=== PATIENT | male | born 1980 | race Caucasian/White ===

== ENCOUNTER 2021-11-18 21:31 | Inpatient (IN) | payer SELFPAY ==
[2021-11-18] MEDS ORDERED: Folic Acid 1 MG, Multivitamins, Adult 10 ML in Dextrose 5 %-0.45 % NaCl 1,000 ML IV SCH (22:45)
[2021-11-18] MEDS ORDERED: Thiamine HCl 200 MG/2 ML VIAL SLOW IVP SCH (22:45)
[2021-11-18] MEDS ORDERED: Lorazepam 2 MG/ML VIAL ONE (23:11)
[2021-11-19] MEDS ORDERED: Lorazepam 2 MG/ML VIAL IM PRN (05:53)
[2021-11-19] MEDS ORDERED: Ondansetron ODT 4 MG TAB PO PRN (05:53)
[2021-11-19] MEDS ORDERED: Lorazepam 1 MG TAB PO PRN (05:53)
[2021-11-19] MEDS ORDERED: Electrolyte Replacement Protocol 1 EACH FS PRN (06:00)
[2021-11-19] MEDS ORDERED: Potassium Chloride 20 MEQ TAB PO SCH (06:00)
[2021-11-19] MEDS ORDERED: Potassium Chloride 20 MEQ TAB ONE (06:15)
[2021-11-19] MEDS ORDERED: Lorazepam 2 MG/ML VIAL ONE (06:15)
[2021-11-19] MEDS: Thiamine HCl 200 MG/2 ML VIAL SLOW IVP SCH (06:32)
[2021-11-19] MEDS: Lorazepam 1 MG TAB PO SCH ×4 (06:32→23:20)
[2021-11-19 06:55] LABS: Phosphorus 3.6 mg/dL (2.3-4.7)
[2021-11-19 06:57] LABS: Anion Gap 16 mmol/L (10-20); BUN (Urea Nitrogen) 18 mg/dL (8.9-20.6); Bilirubin, Direct 1.6 mg/dL (0.1-0.3); Calc. Creatinine Clearance 0 mL/min (70-130); Calcium 9.3 mg/dL (7.8-10.44); Carbon Dioxide 27 mmol/L (22-29); Chloride 98 mmol/L (98-107); Glucose 84 mg/dL (70-105); Magnesium 1.8 mg/dL (1.6-2.6); Potassium 3.6 mmol/L (3.5-5.1); Sodium 137 mmol/L (136-145)
[2021-11-19 07:43] LABS: #Eosinphils 0.1 thou/uL (0.0-0.7); #Lymphocytes 1.3 thou/uL (1.20-3.40); #Monocytes 0.4 thou/uL (0.11-0.59); #Neutrophils 2.9 thou/uL (1.40-6.50); %Basophils 0.3 % (0.0-1.0); %Eosinophils 1.7 % (0.0-10.0); %Monocytes 7.8 % (0.0-10.0); %Neutrophils 62.2 % (42.0-75.0); Hemoglobin 13.7 g/dL (14.0-18.0); Mean Corpuscular HGB CONC 34.3 g/dL (32.0-36.0); Mean Corpuscular Hemoglobin 33.7 pg (27.0-31.0); Mean Corpuscular Volume 98.3 fL (78.0-98.0); Mean Platelet Volume 10.6 fL (7.4-10.4); Platelet Count 14 thou/uL (130-400); RBC Distribution Width 12.6 % (11.5-14.5); Red Blood Cell (RBC) Count 4.08 mill/uL (4.70-6.10); White Blood Cell (WBC) Count 4.7 thou/uL (4.8-10.8)
[2021-11-19 07:48] LABS: Band 11 % (5-11); Eosinophils 1 % (0-10); Lymphocytes 16 % (21-51); MDiff Complete? YES; Monocytes 5 % (0-10); Neutrophil 47 % (42-75); Platelet Morphology Comment Appears Decreased; Reactive Lymphocytes 20 % (0-10); Reflex for Review?? YES; Target Cells SLIGHT = 2-5 cells (100X) (0-1/hpf)
[2021-11-19] MEDS ORDERED: Multivitamins, Adult 10 ML, Folic Acid 1 MG in Dextrose 5 %-0.45 % NaCl 1,000 ML IV SCH (09:00)
[2021-11-19] MEDS: Multivit, Therapeutic 1 TAB PO SCH (09:36)
[2021-11-19] MEDS: Folic Acid 1 MG TAB PO SCH (09:36)
[2021-11-19 09:39] VITALS: BMI 21.5
[2021-11-19] MEDS ORDERED: Magnesium 2 GM/50 ML 2 GM in Premix Bag 1 BAG IVPB SCH (11:00)
[2021-11-19 18:46] LABS: #Eosinphils 0.1 thou/uL (0.0-0.7); #Lymphocytes 1.2 thou/uL (1.20-3.40); #Monocytes 0.3 thou/uL (0.11-0.59); #Neutrophils 3.3 thou/uL (1.40-6.50); %Basophils 0.9 % (0.0-1.0); %Eosinophils 2.5 % (0.0-10.0); %Lymphocytes 24.3 % (21.0-51.0); %Monocytes 6.8 % (0.0-10.0); %Neutrophils 65.5 % (42.0-75.0); Hemoglobin 12.5 g/dL (14.0-18.0); Mean Corpuscular HGB CONC 33.3 g/dL (32.0-36.0); Mean Corpuscular Volume 99.1 fL (78.0-98.0); Mean Platelet Volume 9.1 fL (7.4-10.4); Platelet Count 37 thou/uL (130-400); RBC Distribution Width 12.8 % (11.5-14.5); Red Blood Cell (RBC) Count 3.79 mill/uL (4.70-6.10)
[2021-11-19 19:03] LABS: ALT (SGPT) 57 U/L (8-55); AST (SGOT) 200 U/L (5-34); Albumin 3.7 g/dL (3.5-5.0); Alkaline Phosphatase 101 U/L (40-110); Anion Gap 14 mmol/L (10-20); BUN (Urea Nitrogen) 14 mg/dL (8.9-20.6); Bilirubin, Total 2.6 mg/dL (0.2-1.2); Calc. Creatinine Clearance 137 mL/min (70-130); Carbon Dioxide 25 mmol/L (22-29); Chloride 97 mmol/L (98-107); Globulin 2.5 g/dL (2.4-3.5); Glucose 112 mg/dL (70-105); Potassium 3.6 mmol/L (3.5-5.1); Protein, Total 6.2 g/dL (6.0-8.3); Sodium 132 mmol/L (136-145)
[2021-11-20] MEDS ORDERED: Lorazepam 1 MG TAB PO PRN (05:54)
[2021-11-20] MEDS: Thiamine HCl 200 MG/2 ML VIAL SLOW IVP SCH (06:20)
[2021-11-20] MEDS: Lorazepam 1 MG TAB PO SCH (06:20)
[2021-11-20] MEDS: Folic Acid 1 MG TAB PO SCH (08:24)
[2021-11-20] MEDS: Multivit, Therapeutic 1 TAB PO SCH (08:24)
[2021-11-20] MEDS ORDERED: FLU VACC QS2021-22(6MOS UP)/PF 60 MCG/0.5 ML SYRINGE IM ONE (09:00)
[2021-11-20 09:03] VITALS: BP 140/91; TEMP 98.2
[2021-11-20 10:17] LABS: Hemoglobin 13.6 g/dL (14.0-18.0); Mean Corpuscular HGB CONC 31.6 g/dL (32.0-36.0); Mean Corpuscular Hemoglobin 31.7 pg (27.0-31.0); Mean Platelet Volume 9.4 fL (7.4-10.4); Platelet Count 41 thou/uL (130-400); RBC Distribution Width 12.7 % (11.5-14.5); Red Blood Cell (RBC) Count 4.29 mill/uL (4.70-6.10); White Blood Cell (WBC) Count 5.5 thou/uL (4.8-10.8)
[2021-11-20 10:31] LABS: ALT (SGPT) 69 U/L (8-55); AST (SGOT) 169 U/L (5-34); Albumin 4.4 g/dL (3.5-5.0); Alkaline Phosphatase 118 U/L (40-110); Anion Gap 15 mmol/L (10-20); BUN (Urea Nitrogen) 12 mg/dL (8.9-20.6); Bilirubin, Total 2.7 mg/dL (0.2-1.2); Calc. Creatinine Clearance 121 mL/min (70-130); Calcium 9.8 mg/dL (7.8-10.44); Carbon Dioxide 27 mmol/L (22-29); Chloride 96 mmol/L (98-107); Globulin 2.9 g/dL (2.4-3.5); Glucose 91 mg/dL (70-105); Protein, Total 7.3 g/dL (6.0-8.3); Sodium 134 mmol/L (136-145)
[2021-11-20 11:36] LABS: Thyroid Stimulating Hormone 2.2794 uIU/mL (0.35-4.94)
[2021-11-21] MEDS ORDERED: Lorazepam 1 MG TAB PO PRN (05:54)
[2021-11-21] MEDS ORDERED: Lorazepam 0.5 MG TAB PO SCH (06:00)
[2021-11-22] MEDS ORDERED: Lorazepam 0.5 MG TAB PO PRN (05:54)
[2021-11-22] MEDS ORDERED: Thiamine 100 MG TAB PO SCH (06:00)
== END 2021-11-20 11:09 | disposition home or self-care (01) | DRG 897 ==
LOC: ERS 21:31 → ERHOLD 23:03 → T4-A 11-19 08:43
PROVIDERS: ADMIT Student in an Organized Health Care Education/Training Program; ATTEND Internal Medicine
PROC: HZ2ZZZZ Detoxification Services for Substance Abuse Treatment (ICD-10-PCS; principal; 2021-11-18)
DX: F10.239 Alcohol dependence with withdrawal, unspecified (principal); F17.210 Nicotine dependence, cigarettes, uncomplicated; D69.59 Other secondary thrombocytopenia; D53.9 Nutritional anemia, unspecified; D72.819 Decreased white blood cell count, unspecified; K70.0 Alcoholic fatty liver; F25.9 Schizoaffective disorder, unspecified
CPT/HCPCS: 36415; 36430; 76705; 80048; 80053; 82248; 82607; 82746; 83735; 84100; 84443; 85025; 85027; 85060; 86850; 86900; 86901; J2060; J3411; J3475; J7042; P9035

== ENCOUNTER 2023-06-11 14:22 | Inpatient (IN) | payer OTHER, SELFPAY ==
[2023-06-11] MEDS ORDERED: Ondansetron ODT 4 MG TAB PO PRN (19:39)
[2023-06-11] MEDS ORDERED: Ondansetron PF 4 MG/2 ML Vial IVP PRN (19:39)
[2023-06-11] MEDS ORDERED: Acetaminophen 650 MG Suppository PR PRN (19:39)
[2023-06-11] MEDS ORDERED: fentaNYL 50 mcg/mL 1 mL Vial SLOW IVP PRN (19:51)
[2023-06-11] MEDS ORDERED: Ipratropium/Albuterol 3 ML NEB NEB PRN (19:55)
[2023-06-11] MEDS ORDERED: Benzonatate 100 MG CAP PO PRN (19:56)
[2023-06-11] MEDS ORDERED: Electrolyte Replacement Protocol 1 EACH FS SCH (20:00)
[2023-06-11 20:40] LABS: ALT (SGPT) 35 U/L (8-55); AST (SGOT) 108 U/L (5-34); Albumin 2.7 g/dL (3.5-5.0); Alkaline Phosphatase 126 U/L (40-110); Anion Gap 12 mmol/L (10-20); BUN (Urea Nitrogen) 9 mg/dL (8.9-20.6); Bilirubin, Total 10.6 mg/dL (0.2-1.2); Calc. Creatinine Clearance 144 mL/min (70-130); Calcium 7.8 mg/dL (7.8-10.44); Carbon Dioxide 25 mmol/L (22-29); Chloride 92 mmol/L (98-107); Estimated GFR 124; Globulin 2.7 g/dL (2.4-3.5); Glucose 99 mg/dL (70-105); Magnesium 1.5 mg/dL (1.6-2.6); Potassium 3.2 mmol/L (3.5-5.1); Protein, Total 5.4 g/dL (6.0-8.3); Sodium 126 mmol/L (136-145)
[2023-06-11] MEDS ORDERED: Lorazepam 1 MG TAB PO PRN (20:56)
[2023-06-11] MEDS ORDERED: Lorazepam 2 MG/ML VIAL IM PRN (20:56)
[2023-06-11] MEDS: Lorazepam 1 MG TAB PO SCH (21:55)
[2023-06-11] MEDS: cefTRIAXone\\ROCEPHIN 2 GM in Sodium Chloride 0.9% 100 ML IVPB SCH (21:55)
[2023-06-11 23:53] LABS: Phosphorus 2.1 mg/dL (2.3-4.7)
[2023-06-12] MEDS: Lorazepam 1 MG TAB PO SCH ×4 (04:18→20:42)
[2023-06-12] MEDS: Acetaminophen 325 MG TAB PO PRN ×2 (04:49→21:49)
[2023-06-12 07:07] LABS: #Monocytes 1.7 thou/uL (0.11-0.59); #Neutrophils 7.6 thou/uL (1.40-6.50); %Basophils 0.2 % (0.0-1.0); %Eosinophils 0.3 % (0.0-10.0); %Lymphocytes 16.1 % (21.0-51.0); %Monocytes 15.5 % (0.0-10.0); Hematocrit 23.1 % (42.0-52.0); Hemoglobin 8.4 g/dL (14.0-18.0); Mean Corpuscular HGB CONC 36.4 g/dL (32.0-36.0); Mean Corpuscular Volume 93.5 fl (78.0-98.0); Mean Platelet Volume 10.9 fL (7.4-10.4); Red Blood Cell (RBC) Count 2.47 mill/uL (4.70-6.10); White Blood Cell (WBC) Count 11.3 10x3/uL (4.8-10.8)
[2023-06-12 07:19] LABS: Platelet Count 70 10x3/uL (130-400)
[2023-06-12 07:31] LABS: Anion Gap 11 mmol/L (10-20); BUN (Urea Nitrogen) 12 mg/dL (8.9-20.6); Calc. Creatinine Clearance 138 mL/min (70-130); Calcium 7.7 mg/dL (7.8-10.44); Carbon Dioxide 26 mmol/L (22-29); Chloride 92 mmol/L (98-107); Estimated GFR 123; Glucose 103 mg/dL (70-105); Potassium 2.9 mmol/L (3.5-5.1); Sodium 126 mmol/L (136-145)
[2023-06-12] MEDS: Nicotine 21 MG PATCH TD SCH (07:57)
[2023-06-12] MEDS: Multivit, Therapeutic 1 TAB PO SCH (07:58)
[2023-06-12] MEDS ORDERED: Magnesium 2 GM/50 ML(in water) 2 GM in Premix Bag 1 BAG IVPB SCH (08:00)
[2023-06-12] MEDS ORDERED: Potassium Chloride 20 MEQ TAB PO SCH (08:00)
[2023-06-12 08:52] LABS: INR-International Normal Ratio 2.3; Prothrombin Time 26.5 sec (12.0-14.7)
[2023-06-12 09:18] LABS: CEA, Serum 5.74 ng/mL (< or = 5.0)
[2023-06-12 09:31] LABS: HBCM Index 0.06 S/CO (0-0.79); HBSAg Index 0.33 S/CO (0-0.99); Hep A IgM AB Non-Reactive S/CO (NonReactive); Hep A IgM S/CO 0.21 S/CO (0-0.79); Hep B Surf Ag Non-Reactive S/CO (NonReactive); Hep C IgG Ab Non-Reactive S/CO (NonReactive); Hep C Index 0.24 S/CO (0-0.79); Hepatitis B Core IgM Abs Non-Reactive S/CO (NonReactive)
[2023-06-12] MEDS ORDERED: Phytonadione 5 MG TAB PO SCH (12:15)
[2023-06-12] MEDS ORDERED: Sodium Bicarbonate 2.5 MEQ/5 ML VIAL ONE (13:52)
[2023-06-12] MEDS ORDERED: Lidocaine 1% PF 5 ML VIAL ONE (13:52)
[2023-06-12] MEDS ORDERED: Multivitamins, Adult 10 ML, Folic Acid 1 MG, Thiamine HCl 100 MG in Dextrose 5 %-0.45 %... IV SCH (15:00)
[2023-06-12 16:52] LABS: RBC Count-Automated (BF) 3569 /cu.mm; WBC/Nucleated-Auto (BF) 23038 /cu.mm
[2023-06-12 16:55] LABS: BF Color Yellow; Body Fluid Source Paracentesis Fluid; Clarity Cloudy/Turbid (Clear); Tube # EDTA
[2023-06-12 18:35] LABS: BF Segmented Neutrophils 75 %; Cell Count Non Hematic 21 %; Lymphocytes 4 %
[2023-06-12] MEDS: cefTRIAXone\\ROCEPHIN 2 GM in Sodium Chloride 0.9% 100 ML IVPB SCH (20:42)
[2023-06-12] MEDS ORDERED: Lorazepam 1 MG TAB PO PRN (20:56)
[2023-06-13] MEDS: Lorazepam 1 MG TAB PO SCH ×2 (05:26→09:14)
[2023-06-13 06:25] LABS: #Monocytes 2.5 thou/uL (0.11-0.59); #Neutrophils 10.6 thou/uL (1.40-6.50); %Basophils 0.1 % (0.0-1.0); %Eosinophils 0.2 % (0.0-10.0); %Lymphocytes 14.8 % (21.0-51.0); %Monocytes 16.2 % (0.0-10.0); %Neutrophils 67.7 % (42.0-75.0); Hematocrit 25.3 % (42.0-52.0); Hemoglobin 9.1 g/dL (14.0-18.0); Mean Corpuscular Hemoglobin 33.7 pg (27.0-31.0); Mean Corpuscular Volume 93.7 fl (78.0-98.0); Mean Platelet Volume 10.3 fL (7.4-10.4); RBC Distribution Width 17.5 % (11.5-14.5); White Blood Cell (WBC) Count 15.7 10x3/uL (4.8-10.8)
[2023-06-13 06:29] LABS: Platelet Count 102 10x3/uL (130-400)
[2023-06-13 06:50] LABS: ALT (SGPT) 40 U/L (8-55); AST (SGOT) 124 U/L (5-34); Albumin 2.7 g/dL (3.5-5.0); Alkaline Phosphatase 120 U/L (40-110); Anion Gap 10 mmol/L (10-20); BUN (Urea Nitrogen) 18 mg/dL (8.9-20.6); Bilirubin, Total 12.1 mg/dL (0.2-1.2); Calc. Creatinine Clearance 144 mL/min (70-130); Carbon Dioxide 26 mmol/L (22-29); Chloride 92 mmol/L (98-107); Estimated GFR 124; Globulin 2.8 g/dL (2.4-3.5); Glucose 113 mg/dL (70-105); Potassium 3.2 mmol/L (3.5-5.1); Protein, Total 5.5 g/dL (6.0-8.3); Sodium 125 mmol/L (136-145)
[2023-06-13] MEDS ORDERED: Furosemide 40 MG TAB PO SCH (07:30)
[2023-06-13] MEDS ORDERED: Spironolactone 100 MG TAB PO SCH (08:00)
[2023-06-13] MEDS ORDERED: Phytonadione 10 MG/ML AMP SC SCH (09:00)
[2023-06-13] MEDS: Nicotine 21 MG PATCH TD SCH (09:14)
[2023-06-13] MEDS: Thiamine 100 MG TAB PO SCH (09:14)
[2023-06-13] MEDS: Multivit, Therapeutic 1 TAB PO SCH (09:14)
[2023-06-13] MEDS: Acetaminophen 325 MG TAB PO PRN (09:22)
[2023-06-13] MEDS ORDERED: Furosemide 40 MG/4 ML VIAL SLOW IVP SCH (11:00)
[2023-06-13 11:09] LABS: Actual Bicarbonate (HCO3v) 29.7 mEq/L (22-28); Base Excess 6.7 mEq/L (-2.0 to +3.0); Calcium, Ionized (venous) 1.06 mmol/L (1.16-1.32); Chloride (VBG) 91 mmol/L (98-106); Hematocrit-VBG 32 % (42.0-52.0); Hemoglobin (Hb) 10.9 g/dL (13.2-17.3); Potassium (VBG) 3.22 mmol/L (3.70-5.30); Sodium 124.3 mmol/L (133-146); pH (venous) 7.527 (7.32-7.43)
[2023-06-13] MEDS ORDERED: Pantoprazole 40 MG VIAL IVP SCH (11:15)
[2023-06-13] MEDS: methylPREDNISolone Sod Succ 40 MG VIAL IVP SCH ×3 (11:46→23:46)
[2023-06-13] MEDS: Potassium Chloride 20 MEQ in Premix Bag 1 BAG IVPB SCH ×2 (11:46→13:29)
[2023-06-13] MEDS ORDERED: Ipratropium/Albuterol 3 ML NEB NEB PRN (13:17)
[2023-06-13] MEDS: Furosemide 40 MG/4 ML VIAL SLOW IVP SCH (13:29)
[2023-06-13] MEDS ORDERED: Ipratropium/Albuterol 3 ML NEB NEB SCH (14:30)
[2023-06-13] MEDS: cefTRIAXone\\ROCEPHIN 2 GM in Sodium Chloride 0.9% 100 ML IVPB SCH (20:25)
[2023-06-13] MEDS ORDERED: Lorazepam 1 MG TAB PO PRN (20:56)
[2023-06-13] MEDS ORDERED: Lorazepam 0.5 MG TAB PO SCH (21:00)
[2023-06-13 22:13] LABS: Potassium 4.1 mmol/L (3.5-5.1)
[2023-06-14] MEDS ORDERED: Lorazepam 0.5 MG TAB PO PRN ×2 (02:13→20:56)
[2023-06-14 03:52] LABS: #Neutrophils 16.3 thou/uL (1.40-6.50); %Basophils 0.1 % (0.0-1.0); %Lymphocytes 8.3 % (21.0-51.0); %Monocytes 9.7 % (0.0-10.0); %Neutrophils 80.2 % (42.0-75.0); Hematocrit 25.3 % (42.0-52.0); Hemoglobin 9.4 g/dL (14.0-18.0); Mean Corpuscular HGB CONC 37.2 g/dL (32.0-36.0); Mean Corpuscular Hemoglobin 33.9 pg (27.0-31.0); Mean Corpuscular Volume 91.3 fl (78.0-98.0); Mean Platelet Volume 10.2 fL (7.4-10.4); Platelet Count 140 10x3/uL (130-400); RBC Distribution Width 16.9 % (11.5-14.5); Red Blood Cell (RBC) Count 2.77 mill/uL (4.70-6.10); White Blood Cell (WBC) Count 20.4 10x3/uL (4.8-10.8)
[2023-06-14 04:04] LABS: Prothrombin Time 23.3 sec (12.0-14.7)
[2023-06-14 04:18] LABS: ALT (SGPT) 42 U/L (8-55); AST (SGOT) 116 U/L (5-34); Albumin 2.7 g/dL (3.5-5.0); Alkaline Phosphatase 126 U/L (40-110); Anion Gap 15 mmol/L (10-20); BUN (Urea Nitrogen) 21 mg/dL (8.9-20.6); Bilirubin, Total 10.8 mg/dL (0.2-1.2); Calc. Creatinine Clearance 152 mL/min (70-130); Calcium 7.9 mg/dL (7.8-10.44); Carbon Dioxide 24 mmol/L (22-29); Chloride 91 mmol/L (98-107); Estimated GFR 126; Glucose 125 mg/dL (70-105); Potassium 3.8 mmol/L (3.5-5.1); Protein, Total 5.7 g/dL (6.0-8.3); Sodium 126 mmol/L (136-145)
[2023-06-14] MEDS: Furosemide 40 MG/4 ML VIAL SLOW IVP SCH ×2 (05:12→13:16)
[2023-06-14] MEDS: methylPREDNISolone Sod Succ 40 MG VIAL IVP SCH ×2 (05:12→11:10)
[2023-06-14] MEDS: Thiamine 100 MG TAB PO SCH (08:05)
[2023-06-14] MEDS: Multivit, Therapeutic 1 TAB PO SCH (08:06)
[2023-06-14] MEDS: Nicotine 21 MG PATCH TD SCH (08:08)
[2023-06-14] MEDS ORDERED: Pantoprazole 40 MG VIAL IVP SCH (09:00)
[2023-06-14] MEDS: Polyethylene Glycol 3350 17 GM Packet PO SCH (20:26)
[2023-06-14] MEDS: Morphine 2 MG/ML VIAL SLOW IVP PRN (20:26)
[2023-06-14] MEDS: cefTRIAXone\\ROCEPHIN 2 GM in Sodium Chloride 0.9% 100 ML IVPB SCH (20:27)
[2023-06-15 02:42] LABS: Hematocrit 28.2 % (42.0-52.0); Hemoglobin 10.2 g/dL (14.0-18.0); Mean Corpuscular HGB CONC 36.2 g/dL (32.0-36.0); Mean Corpuscular Hemoglobin 34.2 pg (27.0-31.0); Mean Platelet Volume 9.8 fL (7.4-10.4); Platelet Count 189 10x3/uL (130-400); RBC Distribution Width 18.1 % (11.5-14.5); Red Blood Cell (RBC) Count 2.98 mill/uL (4.70-6.10)
[2023-06-15 02:49] LABS: Delete Auto Diff?? YES; Manual Diff?? YES; Mean Corpuscular Volume 94.6 fl (78.0-98.0)
[2023-06-15 03:08] LABS: INR-International Normal Ratio 1.7; Prothrombin Time 20.8 sec (12.0-14.7)
[2023-06-15 03:09] LABS: PTT 47.1 sec (22.9-36.1)
[2023-06-15 03:12] LABS: ALT (SGPT) 58 U/L (8-55); AST (SGOT) 152 U/L (5-34); Albumin 2.7 g/dL (3.5-5.0); Alkaline Phosphatase 146 U/L (40-110); Anion Gap 14 mmol/L (10-20); BUN (Urea Nitrogen) 30 mg/dL (8.9-20.6); Bilirubin, Total 8.5 mg/dL (0.2-1.2); Calc. Creatinine Clearance 129 mL/min (70-130); Calcium 8.3 mg/dL (7.8-10.44); Carbon Dioxide 25 mmol/L (22-29); Chloride 92 mmol/L (98-107); Estimated GFR 120; Globulin 3.3 g/dL (2.4-3.5); Glucose 118 mg/dL (70-105); Potassium 3.8 mmol/L (3.5-5.1); Sodium 127 mmol/L (136-145)
[2023-06-15 03:26] LABS: Anisocytosis MODERATE=16-30 cells HPF (0-5); Band 8 % (5-11); Burr Cells MODERATE= 6-15 cells HPF (0-1); CellaVision Operator ID lab.sh2; Lymphocytes 2 % (21-51); Macrocytosis MODERATE=16-30 cells HPF (0-5); Monocytes 14 % (0-10); Neutrophil 77 % (42-75); Platelet Adequacy Comment Platelets Normal; Poikilocytosis MODERATE=16-30 cells HPF (0-5); Polychromasia MODERATE = 3-4 cells HPF (0-2); Smudge Cells 9.8 %; Total Cell Count 102
[2023-06-15] MEDS: Furosemide 40 MG/4 ML VIAL SLOW IVP SCH (05:09)
[2023-06-15] MEDS: Polyethylene Glycol 3350 17 GM Packet PO SCH ×2 (08:08→20:21)
[2023-06-15] MEDS: Nicotine 21 MG PATCH TD SCH (08:08)
[2023-06-15] MEDS: Multivit, Therapeutic 1 TAB PO SCH (08:09)
[2023-06-15] MEDS: Thiamine 100 MG TAB PO SCH (08:09)
[2023-06-15] MEDS ORDERED: Lidocaine 1% (PF) 30 ML VIAL ONE (12:14)
[2023-06-15] MEDS: cefTRIAXone\\ROCEPHIN 2 GM in Sodium Chloride 0.9% 100 ML IVPB SCH (20:21)
[2023-06-15] MEDS: Morphine 2 MG/ML VIAL SLOW IVP PRN (20:26)
[2023-06-16 04:00] LABS: #Monocytes 2.2 thou/uL (0.11-0.59); #Neutrophils 14.8 thou/uL (1.40-6.50); %Basophils 0.2 % (0.0-1.0); %Eosinophils 0.1 % (0.0-10.0); %Lymphocytes 9.5 % (21.0-51.0); %Monocytes 11.7 % (0.0-10.0); %Neutrophils 77.5 % (42.0-75.0); Hematocrit 27.4 % (42.0-52.0); Mean Corpuscular HGB CONC 36.5 g/dL (32.0-36.0); Mean Corpuscular Hemoglobin 34.7 pg (27.0-31.0); Mean Corpuscular Volume 95.1 fl (78.0-98.0); Mean Platelet Volume 9.6 fL (7.4-10.4); Platelet Count 172 10x3/uL (130-400); RBC Distribution Width 19.4 % (11.5-14.5); Red Blood Cell (RBC) Count 2.88 mill/uL (4.70-6.10); White Blood Cell (WBC) Count 19.1 10x3/uL (4.8-10.8)
[2023-06-16 04:28] LABS: ALT (SGPT) 136 U/L (8-55); AST (SGOT) 313 U/L (5-34); Albumin 2.5 g/dL (3.5-5.0); Alkaline Phosphatase 160 U/L (40-110); Anion Gap 13 mmol/L (10-20); BUN (Urea Nitrogen) 27 mg/dL (8.9-20.6); Calc. Creatinine Clearance 147 mL/min (70-130); Calcium 8.1 mg/dL (7.8-10.44); Carbon Dioxide 27 mmol/L (22-29); Chloride 92 mmol/L (98-107); Estimated GFR 125; Glucose 100 mg/dL (70-105); Magnesium 1.9 mg/dL (1.6-2.6); Potassium 3.1 mmol/L (3.5-5.1); Protein, Total 5.5 g/dL (6.0-8.3); Sodium 129 mmol/L (136-145)
[2023-06-16] MEDS ORDERED: Potassium Chloride 20 MEQ TAB PO SCH (06:00)
[2023-06-16] MEDS ORDERED: Magnesium 2 GM/50 ML(in water) 2 GM in Premix Bag 1 BAG IVPB SCH (08:00)
[2023-06-16] MEDS: Polyethylene Glycol 3350 17 GM Packet PO SCH ×2 (08:33→19:53)
[2023-06-16] MEDS: Nicotine 21 MG PATCH TD SCH (08:33)
[2023-06-16] MEDS: Thiamine 100 MG TAB PO SCH (08:33)
[2023-06-16] MEDS: Multivit, Therapeutic 1 TAB PO SCH (08:33)
[2023-06-16] MEDS: Acetaminophen 325 MG TAB PO PRN (08:42)
[2023-06-16] MEDS: cefTRIAXone\\ROCEPHIN 2 GM in Sodium Chloride 0.9% 100 ML IVPB SCH (19:52)
[2023-06-16] MEDS: Morphine 2 MG/ML VIAL SLOW IVP PRN (19:54)
[2023-06-17 00:36] LABS: QuantiFERON-TB Gold Plus Negative (Negative)
[2023-06-17] MEDS: Morphine 2 MG/ML VIAL SLOW IVP PRN ×4 (01:55→20:45)
[2023-06-17 05:43] LABS: #Eosinphils 0.1 thou/uL (0.0-0.7); #Monocytes 2.1 thou/uL (0.11-0.59); #Neutrophils 14.2 thou/uL (1.40-6.50); %Basophils 0.2 % (0.0-1.0); %Eosinophils 0.3 % (0.0-10.0); %Lymphocytes 10.5 % (21.0-51.0); %Monocytes 11.3 % (0.0-10.0); %Neutrophils 76.2 % (42.0-75.0); Hematocrit 28.9 % (42.0-52.0); Hemoglobin 10.1 g/dL (14.0-18.0); Mean Corpuscular HGB CONC 34.9 g/dL (32.0-36.0); Mean Corpuscular Hemoglobin 34.1 pg (27.0-31.0); Mean Corpuscular Volume 97.6 fl (78.0-98.0); Mean Platelet Volume 9.7 fL (7.4-10.4); Platelet Count 181 10x3/uL (130-400); RBC Distribution Width 20.1 % (11.5-14.5); Red Blood Cell (RBC) Count 2.96 mill/uL (4.70-6.10); White Blood Cell (WBC) Count 18.6 10x3/uL (4.8-10.8)
[2023-06-17 06:09] LABS: ALT (SGPT) 139 U/L (8-55); AST (SGOT) 254 U/L (5-34); Albumin 2.8 g/dL (3.5-5.0); Alkaline Phosphatase 158 U/L (40-110); Anion Gap 14 mmol/L (10-20); BUN (Urea Nitrogen) 21 mg/dL (8.9-20.6); Bilirubin, Total 8.7 mg/dL (0.2-1.2); Calc. Creatinine Clearance 131 mL/min (70-130); Calcium 7.9 mg/dL (7.8-10.44); Carbon Dioxide 27 mmol/L (22-29); Chloride 93 mmol/L (98-107); Estimated GFR 118; Glucose 99 mg/dL (70-105); Magnesium 2.2 mg/dL (1.6-2.6); Potassium 3.6 mmol/L (3.5-5.1); Protein, Total 5.8 g/dL (6.0-8.3); Sodium 130 mmol/L (136-145)
[2023-06-17] MEDS: Thiamine 100 MG TAB PO SCH (08:30)
[2023-06-17] MEDS: Nicotine 21 MG PATCH TD SCH (08:30)
[2023-06-17] MEDS: Multivit, Therapeutic 1 TAB PO SCH (08:30)
[2023-06-17] MEDS: Polyethylene Glycol 3350 17 GM Packet PO SCH ×2 (08:31→20:35)
[2023-06-17 09:10] LABS: INR-International Normal Ratio 1.8; PTT 45.2 sec (22.9-36.1); Prothrombin Time 21.8 sec (12.0-14.7)
[2023-06-17] MEDS: Melatonin 3 MG TAB PO PRN (11:21)
[2023-06-17] MEDS: cefTRIAXone\\ROCEPHIN 2 GM in Sodium Chloride 0.9% 100 ML IVPB SCH (20:34)
[2023-06-18 06:06] LABS: #Eosinphils 0.1 thou/uL (0.0-0.7); #Monocytes 2.5 thou/uL (0.11-0.59); #Neutrophils 15.3 thou/uL (1.40-6.50); %Basophils 0.1 % (0.0-1.0); %Eosinophils 0.5 % (0.0-10.0); %Lymphocytes 11.1 % (21.0-51.0); %Monocytes 12.1 % (0.0-10.0); %Neutrophils 74.7 % (42.0-75.0); Hematocrit 28.8 % (42.0-52.0); Hemoglobin 10.1 g/dL (14.0-18.0); Mean Corpuscular HGB CONC 35.1 g/dL (32.0-36.0); Mean Corpuscular Hemoglobin 34.6 pg (27.0-31.0); Mean Corpuscular Volume 98.6 fl (78.0-98.0); Mean Platelet Volume 9.7 fL (7.4-10.4); Platelet Count 186 10x3/uL (130-400); RBC Distribution Width 20.6 % (11.5-14.5); Red Blood Cell (RBC) Count 2.92 mill/uL (4.70-6.10); White Blood Cell (WBC) Count 20.4 10x3/uL (4.8-10.8)
[2023-06-18 06:33] LABS: ALT (SGPT) 120 U/L (8-55); AST (SGOT) 196 U/L (5-34); Albumin 2.7 g/dL (3.5-5.0); Alkaline Phosphatase 165 U/L (40-110); Anion Gap 13 mmol/L (10-20); BUN (Urea Nitrogen) 17 mg/dL (8.9-20.6); Bilirubin, Total 8.6 mg/dL (0.2-1.2); Calc. Creatinine Clearance 153 mL/min (70-130); Calcium 7.8 mg/dL (7.8-10.44); Carbon Dioxide 25 mmol/L (22-29); Chloride 92 mmol/L (98-107); Estimated GFR 124; Globulin 2.9 g/dL (2.4-3.5); Glucose 103 mg/dL (70-105); Potassium 2.9 mmol/L (3.5-5.1); Protein, Total 5.6 g/dL (6.0-8.3); Sodium 127 mmol/L (136-145)
[2023-06-18] MEDS: Multivit, Therapeutic 1 TAB PO SCH (10:03)
[2023-06-18] MEDS: Nicotine 21 MG PATCH TD SCH (10:04)
[2023-06-18] MEDS: Thiamine 100 MG TAB PO SCH (10:04)
[2023-06-18] MEDS: Polyethylene Glycol 3350 17 GM Packet PO SCH ×2 (10:04→21:17)
[2023-06-18] MEDS: Potassium Chloride 20 MEQ TAB PO SCH ×2 (10:04→12:23)
[2023-06-18] MEDS: Morphine 2 MG/ML VIAL SLOW IVP PRN ×3 (10:07→21:17)
[2023-06-18] MEDS ORDERED: Furosemide 80 MG TAB PO SCH (15:15)
[2023-06-18] MEDS ORDERED: Spironolactone 100 MG TAB PO SCH (15:15)
[2023-06-18] MEDS: cefTRIAXone\\ROCEPHIN 2 GM in Sodium Chloride 0.9% 100 ML IVPB SCH (21:17)
[2023-06-19] MEDS: Morphine 2 MG/ML VIAL SLOW IVP PRN ×4 (04:38→23:14)
[2023-06-19] MEDS: Acetaminophen 325 MG TAB PO PRN ×2 (06:37→13:23)
[2023-06-19 07:17] LABS: #Basophils 0.1 thou/uL (0.0-0.2); #Eosinphils 0.1 thou/uL (0.0-0.7); #Monocytes 2.9 thou/uL (0.11-0.59); #Neutrophils 14.8 thou/uL (1.40-6.50); %Basophils 0.2 % (0.0-1.0); %Eosinophils 0.5 % (0.0-10.0); %Lymphocytes 11.2 % (21.0-51.0); %Neutrophils 72.5 % (42.0-75.0); Hematocrit 27.8 % (42.0-52.0); Hemoglobin 9.9 g/dL (14.0-18.0); Mean Corpuscular HGB CONC 35.6 g/dL (32.0-36.0); Mean Corpuscular Hemoglobin 34.5 pg (27.0-31.0); Mean Corpuscular Volume 96.9 fl (78.0-98.0); Mean Platelet Volume 9.7 fL (7.4-10.4); Platelet Count 194 10x3/uL (130-400); RBC Distribution Width 21.1 % (11.5-14.5); Red Blood Cell (RBC) Count 2.87 mill/uL (4.70-6.10); White Blood Cell (WBC) Count 20.5 10x3/uL (4.8-10.8)
[2023-06-19 07:44] LABS: Anion Gap 12 mmol/L (10-20); BUN (Urea Nitrogen) 16 mg/dL (8.9-20.6); Calc. Creatinine Clearance 164 mL/min (70-130); Calcium 7.9 mg/dL (7.8-10.44); Carbon Dioxide 25 mmol/L (22-29); Chloride 95 mmol/L (98-107); Estimated GFR 127; Glucose 92 mg/dL (70-105); Potassium 3.7 mmol/L (3.5-5.1); Sodium 128 mmol/L (136-145)
[2023-06-19] MEDS: Thiamine 100 MG TAB PO SCH (07:53)
[2023-06-19] MEDS: Furosemide 40 MG TAB PO SCH (07:53)
[2023-06-19] MEDS: Polyethylene Glycol 3350 17 GM Packet PO SCH ×2 (07:54→21:24)
[2023-06-19] MEDS: Nicotine 21 MG PATCH TD SCH (07:54)
[2023-06-19] MEDS: Multivit, Therapeutic 1 TAB PO SCH (07:54)
[2023-06-19] MEDS: Spironolactone 100 MG TAB PO SCH (07:58)
[2023-06-19] MEDS: cefTRIAXone\\ROCEPHIN 2 GM in Sodium Chloride 0.9% 100 ML IVPB SCH (21:24)
[2023-06-19] MEDS: Melatonin 3 MG TAB PO PRN (21:25)
[2023-06-20] MEDS: Acetaminophen 325 MG TAB PO PRN ×4 (02:06→19:39)
[2023-06-20] MEDS: Morphine 2 MG/ML VIAL SLOW IVP PRN ×3 (05:28→18:13)
[2023-06-20 06:54] LABS: #Basophils 0.1 thou/uL (0.0-0.2); #Eosinphils 0.1 thou/uL (0.0-0.7); #Monocytes 3.2 thou/uL (0.11-0.59); #Neutrophils 15.3 thou/uL (1.40-6.50); %Basophils 0.3 % (0.0-1.0); %Eosinophils 0.5 % (0.0-10.0); %Monocytes 14.8 % (0.0-10.0); %Neutrophils 70.1 % (42.0-75.0); Hematocrit 28.2 % (42.0-52.0); Hemoglobin 9.9 g/dL (14.0-18.0); Mean Corpuscular HGB CONC 35.1 g/dL (32.0-36.0); Mean Corpuscular Hemoglobin 34.7 pg (27.0-31.0); Mean Corpuscular Volume 98.9 fl (78.0-98.0); Mean Platelet Volume 9.4 fL (7.4-10.4); Platelet Count 202 10x3/uL (130-400); RBC Distribution Width 21.2 % (11.5-14.5); Red Blood Cell (RBC) Count 2.85 mill/uL (4.70-6.10); White Blood Cell (WBC) Count 21.8 10x3/uL (4.8-10.8)
[2023-06-20 07:20] LABS: Anion Gap 10 mmol/L (10-20); BUN (Urea Nitrogen) 17 mg/dL (8.9-20.6); Calc. Creatinine Clearance 174 mL/min (70-130); Carbon Dioxide 26 mmol/L (22-29); Chloride 95 mmol/L (98-107); Potassium 3.8 mmol/L (3.5-5.1); Sodium 127 mmol/L (136-145)
[2023-06-20 07:21] LABS: Calcium 7.9 mg/dL (7.8-10.44); Estimated GFR 129; Glucose 99 mg/dL (70-105)
[2023-06-20] MEDS: Spironolactone 100 MG TAB PO SCH (08:46)
[2023-06-20] MEDS: Furosemide 40 MG TAB PO SCH (08:46)
[2023-06-20] MEDS: Thiamine 100 MG TAB PO SCH (08:46)
[2023-06-20] MEDS: Polyethylene Glycol 3350 17 GM Packet PO SCH ×2 (08:46→21:03)
[2023-06-20] MEDS: Multivit, Therapeutic 1 TAB PO SCH (08:46)
[2023-06-20] MEDS: Nicotine 21 MG PATCH TD SCH (08:46)
[2023-06-20] MEDS: Folic Acid 1 MG TAB PO SCH (08:46)
[2023-06-20] MEDS: Melatonin 3 MG TAB PO PRN (21:04)
[2023-06-20] MEDS: cefTRIAXone\\ROCEPHIN 2 GM in Sodium Chloride 0.9% 100 ML IVPB SCH (21:04)
[2023-06-21] MEDS: Morphine 2 MG/ML VIAL SLOW IVP PRN ×3 (00:05→12:05)
[2023-06-21] MEDS: Acetaminophen 325 MG TAB PO PRN ×4 (01:35→20:12)
[2023-06-21 06:28] LABS: #Basophils 0.1 thou/uL (0.0-0.2); #Eosinphils 0.2 thou/uL (0.0-0.7); #Monocytes 3.5 thou/uL (0.11-0.59); #Neutrophils 15.8 thou/uL (1.40-6.50); %Basophils 0.2 % (0.0-1.0); %Eosinophils 0.7 % (0.0-10.0); %Lymphocytes 11.6 % (21.0-51.0); %Monocytes 15.7 % (0.0-10.0); %Neutrophils 70.5 % (42.0-75.0); Hematocrit 27.9 % (42.0-52.0); Mean Corpuscular HGB CONC 35.8 g/dL (32.0-36.0); Mean Corpuscular Hemoglobin 34.5 pg (27.0-31.0); Mean Corpuscular Volume 96.2 fl (78.0-98.0); Mean Platelet Volume 9.6 fL (7.4-10.4); Platelet Count 195 10x3/uL (130-400); RBC Distribution Width 20.3 % (11.5-14.5); White Blood Cell (WBC) Count 22.4 10x3/uL (4.8-10.8)
[2023-06-21 06:54] LABS: Anion Gap 11 mmol/L (10-20); BUN (Urea Nitrogen) 17 mg/dL (8.9-20.6); Calc. Creatinine Clearance 155 mL/min (70-130); Calcium 7.9 mg/dL (7.8-10.44); Carbon Dioxide 25 mmol/L (22-29); Chloride 95 mmol/L (98-107); Estimated GFR 125; Glucose 101 mg/dL (70-105); Potassium 3.5 mmol/L (3.5-5.1); Sodium 127 mmol/L (136-145)
[2023-06-21] MEDS: Folic Acid 1 MG TAB PO SCH (07:54)
[2023-06-21] MEDS: Thiamine 100 MG TAB PO SCH (07:55)
[2023-06-21] MEDS: Multivit, Therapeutic 1 TAB PO SCH (07:55)
[2023-06-21] MEDS: Furosemide 40 MG TAB PO SCH (07:55)
[2023-06-21] MEDS: Polyethylene Glycol 3350 17 GM Packet PO SCH ×2 (07:55→20:12)
[2023-06-21] MEDS: Nicotine 21 MG PATCH TD SCH (07:55)
[2023-06-21] MEDS ORDERED: Potassium Chloride 20 MEQ TAB PO SCH (08:45)
[2023-06-21] MEDS: Spironolactone 100 MG TAB PO SCH (08:47)
[2023-06-21] MEDS: Morphine 4 MG/ML VIAL SLOW IVP PRN ×2 (16:40→22:19)
[2023-06-21] MEDS: cefTRIAXone\\ROCEPHIN 2 GM in Sodium Chloride 0.9% 100 ML IVPB SCH (20:11)
[2023-06-21] MEDS: Melatonin 3 MG TAB PO PRN (22:19)
[2023-06-22] MEDS: Morphine 4 MG/ML VIAL SLOW IVP PRN ×4 (04:25→22:39)
[2023-06-22 06:44] LABS: #Basophils 0.1 thou/uL (0.0-0.2); #Eosinphils 0.1 thou/uL (0.0-0.7); #Monocytes 2.9 thou/uL (0.11-0.59); #Neutrophils 15.7 thou/uL (1.40-6.50); %Basophils 0.2 % (0.0-1.0); %Eosinophils 0.3 % (0.0-10.0); %Lymphocytes 10.4 % (21.0-51.0); %Monocytes 13.6 % (0.0-10.0); %Neutrophils 74.6 % (42.0-75.0); Hematocrit 29.6 % (42.0-52.0); Hemoglobin 10.1 g/dL (14.0-18.0); Mean Corpuscular HGB CONC 34.1 g/dL (32.0-36.0); Mean Corpuscular Hemoglobin 34.6 pg (27.0-31.0); Mean Corpuscular Volume 101.4 fl (78.0-98.0); Mean Platelet Volume 9.5 fL (7.4-10.4); Platelet Count 220 10x3/uL (130-400); RBC Distribution Width 20.7 % (11.5-14.5); Red Blood Cell (RBC) Count 2.92 mill/uL (4.70-6.10)
[2023-06-22 07:07] LABS: Anion Gap 12 mmol/L (10-20); BUN (Urea Nitrogen) 16 mg/dL (8.9-20.6); Calc. Creatinine Clearance 163 mL/min (70-130); Calcium 8.2 mg/dL (7.8-10.44); Carbon Dioxide 22 mmol/L (22-29); Chloride 98 mmol/L (98-107); Estimated GFR 125; Glucose 105 mg/dL (70-105); Potassium 4.1 mmol/L (3.5-5.1); Sodium 128 mmol/L (136-145)
[2023-06-22 08:05] VITALS: BMI 22.6
[2023-06-22] MEDS: Thiamine 100 MG TAB PO SCH (08:26)
[2023-06-22] MEDS: Polyethylene Glycol 3350 17 GM Packet PO SCH ×2 (08:26→20:09)
[2023-06-22] MEDS: Folic Acid 1 MG TAB PO SCH (08:26)
[2023-06-22] MEDS: Nicotine 21 MG PATCH TD SCH (08:26)
[2023-06-22] MEDS: Multivit, Therapeutic 1 TAB PO SCH (08:26)
[2023-06-22] MEDS: Furosemide 40 MG TAB PO SCH (08:27)
[2023-06-22] MEDS: Acetaminophen 325 MG TAB PO PRN ×3 (08:31→18:21)
[2023-06-22] MEDS: Spironolactone 100 MG TAB PO SCH (09:52)
[2023-06-22] MEDS: cefTRIAXone\\ROCEPHIN 2 GM in Sodium Chloride 0.9% 100 ML IVPB SCH (20:08)
[2023-06-22] MEDS: Heparin 5,000 UNITS/ML VIAL SC SCH (20:09)
[2023-06-22] MEDS: Melatonin 3 MG TAB PO PRN (22:38)
[2023-06-23] MEDS: Morphine 4 MG/ML VIAL SLOW IVP PRN ×4 (04:32→23:36)
[2023-06-23 08:04] LABS: #Basophils 0.1 thou/uL (0.0-0.2); #Eosinphils 0.1 thou/uL (0.0-0.7); #Monocytes 2.6 thou/uL (0.11-0.59); #Neutrophils 13.2 thou/uL (1.40-6.50); %Basophils 0.4 % (0.0-1.0); %Eosinophils 0.5 % (0.0-10.0); %Lymphocytes 14.8 % (21.0-51.0); %Monocytes 13.6 % (0.0-10.0); %Neutrophils 70.2 % (42.0-75.0); Hematocrit 27.7 % (42.0-52.0); Hemoglobin 9.6 g/dL (14.0-18.0); Mean Corpuscular HGB CONC 34.7 g/dL (32.0-36.0); Mean Corpuscular Hemoglobin 34.5 pg (27.0-31.0); Mean Corpuscular Volume 99.6 fl (78.0-98.0); Mean Platelet Volume 9.5 fL (7.4-10.4); Platelet Count 210 10x3/uL (130-400); RBC Distribution Width 20.2 % (11.5-14.5); Red Blood Cell (RBC) Count 2.78 mill/uL (4.70-6.10); White Blood Cell (WBC) Count 18.8 10x3/uL (4.8-10.8)
[2023-06-23 08:20] LABS: Anion Gap 13 mmol/L (10-20); BUN (Urea Nitrogen) 17 mg/dL (8.9-20.6); Calc. Creatinine Clearance 175 mL/min (70-130); Calcium 8.3 mg/dL (7.8-10.44); Carbon Dioxide 24 mmol/L (22-29); Chloride 98 mmol/L (98-107); Estimated GFR 128; Glucose 107 mg/dL (70-105); Potassium 4.5 mmol/L (3.5-5.1); Sodium 130 mmol/L (136-145)
[2023-06-23] MEDS: Spironolactone 100 MG TAB PO SCH (08:22)
[2023-06-23] MEDS: Acetaminophen 325 MG TAB PO PRN ×2 (08:23→20:26)
[2023-06-23] MEDS: Heparin 5,000 UNITS/ML VIAL SC SCH ×2 (08:24→20:29)
[2023-06-23] MEDS: Folic Acid 1 MG TAB PO SCH (08:24)
[2023-06-23] MEDS: Furosemide 40 MG TAB PO SCH (08:24)
[2023-06-23] MEDS: Thiamine 100 MG TAB PO SCH (08:25)
[2023-06-23] MEDS: Polyethylene Glycol 3350 17 GM Packet PO SCH ×2 (08:25→20:40)
[2023-06-23] MEDS: Multivit, Therapeutic 1 TAB PO SCH (10:07)
[2023-06-23] MEDS: Metoprolol Tartrate 25 MG TAB PO SCH ×2 (10:07→20:28)
[2023-06-23] MEDS: Nicotine 21 MG PATCH TD SCH (10:07)
[2023-06-23] MEDS: Dicyclomine 20 MG TAB PO SCH ×2 (17:47→20:28)
[2023-06-23] MEDS: cefTRIAXone\\ROCEPHIN 2 GM in Sodium Chloride 0.9% 100 ML IVPB SCH (20:27)
[2023-06-23] MEDS: Melatonin 3 MG TAB PO PRN (23:31)
[2023-06-24] MEDS: Acetaminophen 325 MG TAB PO PRN ×2 (04:00→16:52)
[2023-06-24 07:09] LABS: #Basophils 0.1 thou/uL (0.0-0.2); #Eosinphils 0.2 thou/uL (0.0-0.7); #Monocytes 2.6 thou/uL (0.11-0.59); #Neutrophils 14.5 thou/uL (1.40-6.50); %Basophils 0.5 % (0.0-1.0); %Eosinophils 0.9 % (0.0-10.0); %Lymphocytes 14.5 % (21.0-51.0); %Monocytes 12.8 % (0.0-10.0); %Neutrophils 70.7 % (42.0-75.0); Hematocrit 28.2 % (42.0-52.0); Hemoglobin 9.7 g/dL (14.0-18.0); Mean Corpuscular HGB CONC 34.4 g/dL (32.0-36.0); Mean Corpuscular Hemoglobin 34.8 pg (27.0-31.0); Mean Corpuscular Volume 101.1 fl (78.0-98.0); Mean Platelet Volume 9.3 fL (7.4-10.4); Platelet Count 211 10x3/uL (130-400); RBC Distribution Width 19.9 % (11.5-14.5); Red Blood Cell (RBC) Count 2.79 mill/uL (4.70-6.10); White Blood Cell (WBC) Count 20.4 10x3/uL (4.8-10.8)
[2023-06-24 07:33] LABS: ALT (SGPT) 60 U/L (8-55); AST (SGOT) 99 U/L (5-34); Albumin 2.4 g/dL (3.5-5.0); Alkaline Phosphatase 141 U/L (40-110); Anion Gap 13 mmol/L (10-20); BUN (Urea Nitrogen) 18 mg/dL (8.9-20.6); Bilirubin, Total 5.4 mg/dL (0.2-1.2); Calc. Creatinine Clearance 169 mL/min (70-130); Calcium 8.5 mg/dL (7.8-10.44); Carbon Dioxide 24 mmol/L (22-29); Chloride 99 mmol/L (98-107); Estimated GFR 126; Globulin 3.1 g/dL (2.4-3.5); Glucose 89 mg/dL (70-105); Potassium 4.6 mmol/L (3.5-5.1); Protein, Total 5.5 g/dL (6.0-8.3); Sodium 131 mmol/L (136-145)
[2023-06-24] MEDS: Heparin 5,000 UNITS/ML VIAL SC SCH ×2 (13:48→20:57)
[2023-06-24] MEDS: Morphine 4 MG/ML VIAL SLOW IVP PRN ×2 (13:51→20:53)
[2023-06-24] MEDS: Folic Acid 1 MG TAB PO SCH (13:55)
[2023-06-24] MEDS: Metoprolol Tartrate 25 MG TAB PO SCH ×2 (13:55→20:53)
[2023-06-24] MEDS: Dicyclomine 20 MG TAB PO SCH ×4 (13:56→20:53)
[2023-06-24] MEDS: Furosemide 40 MG TAB PO SCH (13:56)
[2023-06-24] MEDS: Thiamine 100 MG TAB PO SCH (13:56)
[2023-06-24] MEDS: Polyethylene Glycol 3350 17 GM Packet PO SCH ×2 (13:57→20:53)
[2023-06-24] MEDS: Spironolactone 100 MG TAB PO SCH (13:57)
[2023-06-24] MEDS: Multivit, Therapeutic 1 TAB PO SCH (13:57)
[2023-06-24] MEDS: Nicotine 21 MG PATCH TD SCH (13:57)
[2023-06-24] MEDS: cefTRIAXone\\ROCEPHIN 2 GM in Sodium Chloride 0.9% 100 ML IVPB SCH (20:52)
[2023-06-24] MEDS: Melatonin 3 MG TAB PO PRN (20:53)
[2023-06-25] MEDS: Morphine 4 MG/ML VIAL SLOW IVP PRN ×4 (02:57→21:13)
[2023-06-25] MEDS: Acetaminophen 325 MG TAB PO PRN ×2 (06:33→12:36)
[2023-06-25 06:51] LABS: #Basophils 0.1 thou/uL (0.0-0.2); #Eosinphils 0.2 thou/uL (0.0-0.7); #Monocytes 2.1 thou/uL (0.11-0.59); #Neutrophils 13.2 thou/uL (1.40-6.50); %Basophils 0.6 % (0.0-1.0); %Lymphocytes 16.4 % (21.0-51.0); %Monocytes 11.2 % (0.0-10.0); %Neutrophils 70.3 % (42.0-75.0); Hematocrit 32.4 % (42.0-52.0); Mean Corpuscular Hemoglobin 34.9 pg (27.0-31.0); Mean Corpuscular Volume 102.9 fl (78.0-98.0); Mean Platelet Volume 9.5 fL (7.4-10.4); Platelet Count 203 10x3/uL (130-400); RBC Distribution Width 19.9 % (11.5-14.5); Red Blood Cell (RBC) Count 3.15 mill/uL (4.70-6.10); White Blood Cell (WBC) Count 18.8 10x3/uL (4.8-10.8)
[2023-06-25 07:16] LABS: ALT (SGPT) 57 U/L (8-55); AST (SGOT) 99 U/L (5-34); Albumin 2.7 g/dL (3.5-5.0); Alkaline Phosphatase 146 U/L (40-110); Anion Gap 11 mmol/L (10-20); BUN (Urea Nitrogen) 17 mg/dL (8.9-20.6); Bilirubin, Total 4.9 mg/dL (0.2-1.2); Calc. Creatinine Clearance 155 mL/min (70-130); Calcium 8.2 mg/dL (7.8-10.44); Carbon Dioxide 23 mmol/L (22-29); Chloride 99 mmol/L (98-107); Estimated GFR 123; Globulin 3.3 g/dL (2.4-3.5); Glucose 111 mg/dL (70-105); Potassium 4.1 mmol/L (3.5-5.1); Sodium 129 mmol/L (136-145)
[2023-06-25] MEDS: Multivit, Therapeutic 1 TAB PO SCH (08:52)
[2023-06-25] MEDS: Dicyclomine 20 MG TAB PO SCH ×4 (08:52→21:12)
[2023-06-25] MEDS: Nicotine 21 MG PATCH TD SCH (08:52)
[2023-06-25] MEDS: Folic Acid 1 MG TAB PO SCH (08:52)
[2023-06-25] MEDS: Spironolactone 100 MG TAB PO SCH (08:53)
[2023-06-25] MEDS: Thiamine 100 MG TAB PO SCH (08:53)
[2023-06-25] MEDS: Polyethylene Glycol 3350 17 GM Packet PO SCH ×2 (08:53→21:11)
[2023-06-25] MEDS: Furosemide 40 MG TAB PO SCH (08:53)
[2023-06-25] MEDS: Heparin 5,000 UNITS/ML VIAL SC SCH ×2 (08:53→21:12)
[2023-06-25] MEDS: Metoprolol Tartrate 25 MG TAB PO SCH ×2 (09:07→21:12)
[2023-06-25] MEDS: cefTRIAXone\\ROCEPHIN 2 GM in Sodium Chloride 0.9% 100 ML IVPB SCH (21:13)
[2023-06-25] MEDS: Melatonin 3 MG TAB PO PRN (21:27)
[2023-06-26] MEDS: Morphine 4 MG/ML VIAL SLOW IVP PRN ×2 (04:44→09:43)
[2023-06-26 07:40] LABS: #Basophils 0.1 thou/uL (0.0-0.2); #Eosinphils 0.2 thou/uL (0.0-0.7); #Monocytes 2.1 thou/uL (0.11-0.59); #Neutrophils 12.9 thou/uL (1.40-6.50); %Basophils 0.5 % (0.0-1.0); %Lymphocytes 16.6 % (21.0-51.0); %Monocytes 11.2 % (0.0-10.0); %Neutrophils 70.2 % (42.0-75.0); Hematocrit 29.2 % (42.0-52.0); Hemoglobin 9.8 g/dL (14.0-18.0); Mean Corpuscular HGB CONC 33.6 g/dL (32.0-36.0); Mean Corpuscular Hemoglobin 34.6 pg (27.0-31.0); Mean Corpuscular Volume 103.2 fl (78.0-98.0); Mean Platelet Volume 9.5 fL (7.4-10.4); Platelet Count 165 10x3/uL (130-400); RBC Distribution Width 19.5 % (11.5-14.5); Red Blood Cell (RBC) Count 2.83 mill/uL (4.70-6.10); White Blood Cell (WBC) Count 18.3 10x3/uL (4.8-10.8)
[2023-06-26 07:51] VITALS: BP 104/69; TEMP 98.5
[2023-06-26 08:07] LABS: Anion Gap 12 mmol/L (10-20); BUN (Urea Nitrogen) 18 mg/dL (8.9-20.6); Calc. Creatinine Clearance 155 mL/min (70-130); Calcium 8.1 mg/dL (7.8-10.44); Carbon Dioxide 21 mmol/L (22-29); Chloride 102 mmol/L (98-107); Estimated GFR 123; Glucose 126 mg/dL (70-105); Sodium 131 mmol/L (136-145)
[2023-06-26] MEDS: Spironolactone 100 MG TAB PO SCH (08:13)
[2023-06-26] MEDS: Metoprolol Tartrate 25 MG TAB PO SCH (08:13)
[2023-06-26] MEDS: Thiamine 100 MG TAB PO SCH (08:14)
[2023-06-26] MEDS: Heparin 5,000 UNITS/ML VIAL SC SCH (08:14)
[2023-06-26] MEDS: Folic Acid 1 MG TAB PO SCH (08:14)
[2023-06-26] MEDS: Multivit, Therapeutic 1 TAB PO SCH (08:14)
[2023-06-26] MEDS: Dicyclomine 20 MG TAB PO SCH (08:15)
[2023-06-26] MEDS: Nicotine 21 MG PATCH TD SCH (08:15)
[2023-06-26] MEDS: Polyethylene Glycol 3350 17 GM Packet PO SCH (08:20)
[2023-06-26] MEDS ORDERED: Furosemide 40 MG TAB PO SCH (09:00)
== END 2023-06-26 11:49 | disposition home or self-care (01) | DRG 871 ==
LOC: T4-A 17:22 → IMCU/EMU 06-13 11:18 → T4-A 06-16 14:38
PROVIDERS: ADMIT Internal Medicine Critical Care Medicine; ATTEND Internal Medicine Critical Care Medicine
PROC: 3E03329 Introduction of Other Anti-infective into Peripheral Vein, Percutaneous Approach (ICD-10-PCS; 2023-06-11)
PROC: 0W9G3ZZ Drainage of Peritoneal Cavity, Percutaneous Approach (ICD-10-PCS; principal; 2023-06-12)
DX: A41.51 Sepsis due to Escherichia coli [E. coli] (principal); J96.01 Acute respiratory failure with hypoxia; K65.2 Spontaneous bacterial peritonitis; E87.1 Hypo-osmolality and hyponatremia; D68.9 Coagulation defect, unspecified; K80.00 Calculus of gallbladder with acute cholecystitis without obstruction; K76.0 Fatty (change of) liver, not elsewhere classified; F17.210 Nicotine dependence, cigarettes, uncomplicated; E87.6 Hypokalemia; E80.6 Other disorders of bilirubin metabolism; K76.89 Other specified diseases of liver; K70.31 Alcoholic cirrhosis of liver with ascites; K72.90 Hepatic failure, unspecified without coma; D69.6 Thrombocytopenia, unspecified; K70.10 Alcoholic hepatitis without ascites; R65.20 Severe sepsis without septic shock; F10.20 Alcohol dependence, uncomplicated; Z66 Do not resuscitate; Z71.41 Alcohol abuse counseling and surveillance of alcoholic; Z79.899 Other long term (current) drug therapy
CPT/HCPCS: 36415; 49083; 71045; 71250; 74183; 76700; 76705; 78227; 80048; 80053; 80074; 82105; 82378; 82805; 83735; 83880; 84100; 85025; 85060; 85610; 85730; 86301; 86480; 87040; 87070; 87077; 87149; 87186; 87205; 88112; 89051; 93005; 93010; 94640; A9537; C9113; J0696; J1644; J1940; J2270; J2272; J2920; J3010; J3411; J3430; J3475; J3480; J3490; J7042; J7620

== ENCOUNTER 2023-07-18 20:37 | Inpatient (IN) | payer OTHER ==
[2023-07-18 23:41] VITALS: BMI 20.9
[2023-07-19 06:37] LABS: #Basophils 0.1 thou/uL (0.0-0.2); #Monocytes 1.9 thou/uL (0.11-0.59); %Basophils 0.6 % (0.0-1.0)
[2023-07-19 06:39] LABS: #Eosinphils 1.4 thou/uL (0.0-0.7); #Neutrophils 9.2 thou/uL (1.40-6.50); %Eosinophils 9.1 % (0.0-10.0); %Lymphocytes 17.3 % (21.0-51.0); %Monocytes 12.2 % (0.0-10.0); %Neutrophils 60.5 % (42.0-75.0); Hematocrit 34.5 % (42.0-52.0); Hemoglobin 11.7 g/dL (14.0-18.0); Mean Corpuscular HGB CONC 33.9 g/dL (32.0-36.0); Mean Corpuscular Hemoglobin 33.3 pg (27.0-31.0); Mean Corpuscular Volume 98.3 fl (78.0-98.0); Mean Platelet Volume 8.9 fL (7.4-10.4); Platelet Count 135 10x3/uL (130-400); Red Blood Cell (RBC) Count 3.51 mill/uL (4.70-6.10); White Blood Cell (WBC) Count 15.2 10x3/uL (4.8-10.8)
[2023-07-19 06:52] LABS: Anion Gap 13 mmol/L (10-20); BUN (Urea Nitrogen) 20 mg/dL (8.9-20.6); Calc. Creatinine Clearance 137 mL/min (70-130); Carbon Dioxide 24 mmol/L (22-29); Chloride 103 mmol/L (98-107); Estimated GFR 122; Glucose 101 mg/dL (70-105); Potassium 3.6 mmol/L (3.5-5.1); Sodium 136 mmol/L (136-145)
[2023-07-19] MEDS: Folic Acid 1 MG TAB PO SCH (08:21)
[2023-07-19] MEDS: Thiamine 100 MG TAB PO SCH (08:21)
[2023-07-19] MEDS: Spironolactone 100 MG TAB PO SCH (08:21)
[2023-07-19] MEDS: Furosemide 40 MG TAB PO SCH ×2 (08:21→13:05)
[2023-07-19] MEDS: cefTRIAXone\\ROCEPHIN 2 GM in Sodium Chloride 0.9% 100 ML IVPB SCH (09:41)
[2023-07-19] MEDS: Rifaximin 200 MG TAB PO SCH ×2 (09:41→20:08)
[2023-07-19] MEDS ORDERED: Nicotine 21 MG PATCH TD SCH (13:00)
[2023-07-19] MEDS ORDERED: Lidocaine 1% PF 5 ML VIAL ONE (13:12)
[2023-07-19] MEDS ORDERED: Sodium Bicarbonate 2.5 MEQ/5 ML VIAL ONE (13:12)
[2023-07-19] MEDS: Morphine 2 MG/ML VIAL SLOW IVP PRN (15:31)
[2023-07-19] MEDS ORDERED: Ondansetron PF 4 MG/2 ML Vial IVP PRN (15:35)
[2023-07-19] MEDS ORDERED: Ondansetron PF 4 MG/2 ML Vial IVP SCH (15:36)
[2023-07-19] MEDS: traMADol HCl 50 MG TAB PO PRN (20:13)
[2023-07-20] MEDS: Morphine 2 MG/ML VIAL SLOW IVP PRN ×2 (00:08→22:07)
[2023-07-20 08:23] LABS: #Basophils 0.1 thou/uL (0.0-0.2); #Eosinphils 1.4 thou/uL (0.0-0.7); #Monocytes 1.5 thou/uL (0.11-0.59); %Basophils 0.7 % (0.0-1.0); %Monocytes 10.7 % (0.0-10.0); %Neutrophils 56.3 % (42.0-75.0); Hemoglobin 11.3 g/dL (14.0-18.0); Mean Corpuscular HGB CONC 33.2 g/dL (32.0-36.0); Mean Corpuscular Hemoglobin 33.1 pg (27.0-31.0); Mean Corpuscular Volume 99.7 fl (78.0-98.0); Mean Platelet Volume 8.7 fL (7.4-10.4); Platelet Count 134 10x3/uL (130-400); Red Blood Cell (RBC) Count 3.41 mill/uL (4.70-6.10); White Blood Cell (WBC) Count 14.2 10x3/uL (4.8-10.8)
[2023-07-20 08:40] LABS: ALT (SGPT) 27 U/L (8-55); AST (SGOT) 50 U/L (5-34); Albumin 3.1 g/dL (3.5-5.0); Alkaline Phosphatase 94 U/L (40-110); Anion Gap 10 mmol/L (10-20); BUN (Urea Nitrogen) 13 mg/dL (8.9-20.6); Calc. Creatinine Clearance 152 mL/min (70-130); Calcium 8.7 mg/dL (7.8-10.44); Carbon Dioxide 25 mmol/L (22-29); Chloride 104 mmol/L (98-107); Estimated GFR 126; Globulin 3.1 g/dL (2.4-3.5); Glucose 111 mg/dL (70-105); Potassium 3.3 mmol/L (3.5-5.1); Protein, Total 6.2 g/dL (6.0-8.3); Sodium 136 mmol/L (136-145)
[2023-07-20] MEDS: Rifaximin 200 MG TAB PO SCH ×2 (08:45→21:07)
[2023-07-20 08:46] LABS: INR-International Normal Ratio 1.6
[2023-07-20] MEDS: Thiamine 100 MG TAB PO SCH (08:46)
[2023-07-20] MEDS: Furosemide 40 MG TAB PO SCH ×2 (08:46→14:25)
[2023-07-20] MEDS: Nicotine 21 MG PATCH TD SCH (08:46)
[2023-07-20] MEDS: Folic Acid 1 MG TAB PO SCH (08:46)
[2023-07-20] MEDS: Spironolactone 100 MG TAB PO SCH (08:46)
[2023-07-20] MEDS: cefTRIAXone\\ROCEPHIN 2 GM in Sodium Chloride 0.9% 100 ML IVPB SCH (08:53)
[2023-07-20] MEDS ORDERED: Potassium Chloride 20 MEQ TAB PO SCH (10:00)
[2023-07-20] MEDS: traMADol HCl 50 MG TAB PO PRN ×2 (10:45→17:37)
[2023-07-21 08:05] LABS: #Basophils 0.1 thou/uL (0.0-0.2); #Eosinphils 1.6 thou/uL (0.0-0.7); #Monocytes 1.6 thou/uL (0.11-0.59); #Neutrophils 8.2 thou/uL (1.40-6.50); %Basophils 0.7 % (0.0-1.0); %Eosinophils 10.2 % (0.0-10.0); %Lymphocytes 25.2 % (21.0-51.0); %Monocytes 10.1 % (0.0-10.0); %Neutrophils 53.5 % (42.0-75.0); Hematocrit 34.7 % (42.0-52.0); Hemoglobin 11.6 g/dL (14.0-18.0); Mean Corpuscular HGB CONC 33.4 g/dL (32.0-36.0); Mean Corpuscular Hemoglobin 33.3 pg (27.0-31.0); Mean Corpuscular Volume 99.7 fl (78.0-98.0); Mean Platelet Volume 8.8 fL (7.4-10.4); RBC Distribution Width 14.9 % (11.5-14.5); Red Blood Cell (RBC) Count 3.48 mill/uL (4.70-6.10); White Blood Cell (WBC) Count 15.4 10x3/uL (4.8-10.8)
[2023-07-21 08:23] LABS: ALT (SGPT) 28 U/L (8-55); AST (SGOT) 58 U/L (5-34); Albumin 3.2 g/dL (3.5-5.0); Alkaline Phosphatase 100 U/L (40-110); Anion Gap 14 mmol/L (10-20); BUN (Urea Nitrogen) 11 mg/dL (8.9-20.6); Calc. Creatinine Clearance 131 mL/min (70-130); Calcium 8.8 mg/dL (7.8-10.44); Carbon Dioxide 23 mmol/L (22-29); Chloride 100 mmol/L (98-107); Estimated GFR 121; Globulin 3.3 g/dL (2.4-3.5); Glucose 128 mg/dL (70-105); Potassium 3.7 mmol/L (3.5-5.1); Protein, Total 6.5 g/dL (6.0-8.3); Sodium 133 mmol/L (136-145)
[2023-07-21 08:38] LABS: Platelet Count 124 10x3/uL (130-400)
[2023-07-21 08:41] LABS: INR-International Normal Ratio 1.5; Prothrombin Time 19.1 sec (12.0-14.7)
[2023-07-21 08:57] VITALS: BP 110/74; TEMP 98.4
[2023-07-21] MEDS: Thiamine 100 MG TAB PO SCH (09:23)
[2023-07-21] MEDS: Folic Acid 1 MG TAB PO SCH (09:23)
[2023-07-21] MEDS: Spironolactone 100 MG TAB PO SCH (09:23)
[2023-07-21] MEDS: Furosemide 40 MG TAB PO SCH (09:23)
[2023-07-21] MEDS: Morphine 2 MG/ML VIAL SLOW IVP PRN (09:24)
[2023-07-21] MEDS: Nicotine 21 MG PATCH TD SCH (09:24)
[2023-07-21] MEDS: cefTRIAXone\\ROCEPHIN 2 GM in Sodium Chloride 0.9% 100 ML IVPB SCH (09:24)
[2023-07-21] MEDS: Rifaximin 200 MG TAB PO SCH (09:25)
== END 2023-07-21 15:42 | disposition home or self-care (01) | DRG 433 ==
LOC: T4-B 20:37 → OBSVTOIN 07-19 13:21
PROVIDERS: ADMIT Internal Medicine; ATTEND Family Medicine
PROC: 0W9G3ZZ Drainage of Peritoneal Cavity, Percutaneous Approach (ICD-10-PCS; principal; 2023-07-19)
DX: K70.31 Alcoholic cirrhosis of liver with ascites (principal); R64 Cachexia; K76.82 Hepatic encephalopathy; F10.20 Alcohol dependence, uncomplicated; Z51.5 Encounter for palliative care; Z66 Do not resuscitate; R26.81 Unsteadiness on feet; K72.10 Chronic hepatic failure without coma; F17.210 Nicotine dependence, cigarettes, uncomplicated; F12.90 Cannabis use, unspecified, uncomplicated; Z71.41 Alcohol abuse counseling and surveillance of alcoholic; E87.6 Hypokalemia; Z79.899 Other long term (current) drug therapy; Z56.0 Unemployment, unspecified; Z68.21 Body mass index [BMI] 21.0-21.9, adult
CPT/HCPCS: 36415; 49083; 80048; 80053; 85025; 85610; 96374; G0378; J0696; J2272; J2405; J3490

== ENCOUNTER 2023-08-08 10:00 | Emergency (ER) | payer OTHER ==
[2023-08-08] MEDS ORDERED: Ondansetron PF 4 MG/2 ML Vial ONE (10:34)
[2023-08-08] MEDS ORDERED: Morphine 4 MG/ML VIAL ONE (10:34)
[2023-08-08 10:49] LABS: #Basophils 0.3 thou/uL (0.0-0.2); #Eosinphils 3.6 thou/uL (0.0-0.7); #Monocytes 2.1 thou/uL (0.11-0.59); #Neutrophils 8.5 thou/uL (1.40-6.50); %Basophils 1.5 % (0.0-1.0); %Eosinophils 19.8 % (0.0-10.0); %Lymphocytes 20.4 % (21.0-51.0); %Monocytes 11.5 % (0.0-10.0); %Neutrophils 46.5 % (42.0-75.0); Hematocrit 35.6 % (42.0-52.0); Hemoglobin 12.5 g/dL (14.0-18.0); Mean Corpuscular HGB CONC 35.1 g/dL (32.0-36.0); Mean Corpuscular Hemoglobin 32.5 pg (27.0-31.0); Mean Corpuscular Volume 92.5 fl (78.0-98.0); Platelet Count 140 10x3/uL (130-400); RBC Distribution Width 13.6 % (11.5-14.5); Red Blood Cell (RBC) Count 3.85 mill/uL (4.70-6.10); White Blood Cell (WBC) Count 18.3 10x3/uL (4.8-10.8)
[2023-08-08 11:11] LABS: ALT (SGPT) 17 U/L (8-55); AST (SGOT) 31 U/L (5-34); Albumin 3.3 g/dL (3.5-5.0); Alkaline Phosphatase 94 U/L (40-110); Anion Gap 14 mmol/L (10-20); BUN (Urea Nitrogen) 10 mg/dL (8.9-20.6); Bilirubin, Total 2.9 mg/dL (0.2-1.2); Calc. Creatinine Clearance 0 mL/min (70-130); Calcium 9.1 mg/dL (7.8-10.44); Carbon Dioxide 28 mmol/L (22-29); Chloride 92 mmol/L (98-107); Estimated GFR 116; Globulin 3.5 g/dL (2.4-3.5); Glucose 112 mg/dL (70-105); Lipase 28 U/L (8-78); Protein, Total 6.8 g/dL (6.0-8.3); Sodium 131 mmol/L (136-145)
[2023-08-08 12:52] LABS: Bacteria/HPF None Seen HPF (None Seen); Bilirubin Negative (Negative); Blood, Urine Negative (Negative); CAUTI Indications for Culture Pelvic or flank pain; Clarity Clear (Clear); Glucose, Urine (Dipstick) Normal (Negative); Ketone, Urine Negative (Negative); Leukocyte Negative Leu/uL (Negative); Nitrite Negative (Negative); Protein, Urine (Dipstick) Negative (Neg-Trace); RBC/HPF 0-3 HPF (0-3); Squamous Epithelial 0-3 HPF (0-3); WBC/HPF 0-3 HPF (0-3)
[2023-08-08 12:56] LABS: Urine Culture Reflex No No
[2023-08-08] MEDS ORDERED: Iopamidol 370 76% 100 ML VIAL ONE (13:25)
[2023-08-08] MEDS ORDERED: Iopamidol-370 76% 500 ML MDV (1 ML CHARGE) ONE (13:27)
[2023-08-08 13:48] LABS: Troponin I Less than 0.010 ng/mL (< 0.028)
[2023-08-08 14:26] LABS: INR-International Normal Ratio 1.7; PTT 49.7 sec (22.9-36.1); Prothrombin Time 20.9 sec (12.0-14.7)
[2023-08-08] MEDS ORDERED: Potassium Chloride 20 MEQ/100 ML PREMIX BAG ONE (14:35)
[2023-08-08 16:20] LABS: Lactic Acid 1.2 mmol/L (0.5-2.2)
[2023-08-08] MEDS ORDERED: fentaNYL 50 mcg/mL 1 mL Vial ONE (17:00)
[2023-08-08] MEDS ORDERED: Piperacillin/Tazobactam 4.5 GM VIAL ONE (20:33)
== END 2023-08-09 01:30 | disposition short-term general hospital (02) ==
LOC: ERS 10:00
DX: K74.60 Unspecified cirrhosis of liver (principal); K92.2 Gastrointestinal hemorrhage, unspecified; F17.210 Nicotine dependence, cigarettes, uncomplicated; Z79.01 Long term (current) use of anticoagulants
CPT/HCPCS: 36415; 74174; 74177; 80053; 81001; 82140; 83605; 83690; 84484; 85025; 85610; 85730; 86850; 86900; 86901; 87040; 87086; 93005; 96361; 96365; 96366; 96367; 96375; J2270; J2405; J2543; J3010; J3480; Q9967